=== PATIENT | male | born 1950 | race Caucasian/White ===

== ENCOUNTER 2024-11-01 20:49 | Inpatient (IN) | payer BC, MEDICARE ==
[~2024-11-01] VITALS: Ht 175.3 cm; Wt 62.2 kg
[~2024-11-01 20:49] MED LIST: MAGN420T GT; POTA25TA7 GT
[2024-11-01 21:25] LABS: BASOPHILS % (AUTO) 0.3 % (0.0-2.0); EOSINOPHILS # (AUTO) 0.1 K/uL (0.0-0.7); EOSINOPHILS % (AUTO) 0.5 % (0.0-6.0); HEMATOCRIT 38 % (39-51); HEMOGLOBIN 11.9 g/dL (13.5-17.5); LYMPHOCYTES # (AUTO) 1.1 K/uL (0.8-4.8); LYMPHOCYTES % (AUTO) 8.2 % (20.0-44.0); MEAN CORPUSCULAR HEMOGLOBIN 30 PG (26.0-33.0); MEAN CORPUSCULAR HGB CONC 32 g/dl (31.0-36.0); MEAN CORPUSCULAR VOLUME 95 fL (80-96); MONOCYTES # (AUTO) 1.3 K/uL (0.1-1.30); MONOCYTES % (AUTO) 9.3 % (2.0-12.0); NEUTROPHILS # (AUTO) 11.4 K/uL (1.8-8.9); NEUTROPHILS % (AUTO) 81.7 % (43.0-81.0); PLATELET COUNT (AUTO) 225 K/uL (150-450); RED BLOOD CELL COUNT(AUTO) 3.97 MIL/uL (4.5-6.0); RED CELL DISTRIBUTION WIDTH 20.7 % (11.5-15.0)
[2024-11-01] MEDS ORDERED: PIPERACI/TAZO 3.375GM/D5W 50ML PB IV ONE (21:32)
[2024-11-01] MEDS: PIPERACILLIN /TAZOBACTAM 3.375 G in IV D5W 50 ML IV ONE (21:36)
[2024-11-01] MEDS: IV NS 0.9% 1,000 ML IV ONE ×2 (21:36)
[2024-11-01 21:37] LABS: INR 1.13 (0.91-1.10); PARTIAL THROMBOPLASTIN TIME 25.4 SEC (24.3-34.3); PROTHROMBIN TIME 11.9 SECS (9.2-11.1)
[2024-11-01 21:39] LABS: ALANINE AMINOTRANSFERASE 17 U/L (12-78); ALBUMIN 2.1 g/dL (3.4-5.0); ALKALINE PHOSPHATASE 109 U/L (46-116); ASPARTATE AMINOTRANSFERASE 38 U/L (15-37); BILIRUBIN,DIRECT 0.3 mg/dL (0.0-0.2); BILIRUBIN,TOTAL 0.6 mg/dL (0.2-1.0); CALCIUM, SERUM 8.7 mg/dL (8.5-10.1); CARBON DIOXIDE 25 mmol/L (21-32); CHLORIDE 110 mmol/L (98-107); GLUCOSE 104 mg/dL (74-106); POTASSIUM 3.8 mmol/L (3.5-5.1); SODIUM SERUM 147 mmol/L (136-145)
[2024-11-01 21:51] LABS: LACTIC ACID 3.5 mmol/L (0.4-2.0)
[2024-11-01 21:53] LABS: UREA NITROGEN, BLOOD 174 mg/dL (7-18)
[2024-11-01 21:57] LABS: APPEARANCE,URINE CLEAR (CLEAR); BILIRUBIN,URINE NEGATIVE (NEGATIVE); BLOOD, URINE 2+ Ery/uL (NEGATIVE); COLOR,URINE YELLOW (YELLOW); KETONES,URINE NEGATIVE (NEGATIVE); LEUKOCYTE ESTERASE ,URINE TRACE (NEGATIVE); NITRITE, URINE POSITIVE (NEGATIVE); PH,URINE 5.5 (5.0-8.0); PROTEIN,URINE NEGATIVE (NEGATIVE); UGLUCOSE NEGATIVE (NEGATIVE); UROBILINOGEN,URINE 0.2 EU/dL (0.2)
[2024-11-01 21:58] LABS: ADD URINE CULTURE YES; BACTERIA,URINE Few /HPF (None Seen); HYALINE CASTS, URINE Rare /LPF (None Seen); SQUAMOUS EPITHELIAL CELL,UR Rare /HPF (None Seen)
[2024-11-01 21:59] VITALS: O2SAT 96
[2024-11-01] MEDS: ALBUTEROL FS 2.5 MG/3 ML VIAL.NEB NEB ONE (21:59)
[2024-11-01] MEDS ORDERED: ALBUTEROL FS 2.5 MG/3 ML VIAL.NEB ONE (21:59)
[2024-11-01 22:14] VITALS: O2SAT 100
[2024-11-01 23:59] LABS: ABG BASE EXCESS -5.3 mmol/L (-2.0-3.0); ABG OXYGEN SATURATION 87.1 % (94.0-98.0); ABG PCO2 22.2 mmHg (35.0-48.0); ABG PH 7.484 (7.350-7.450); ABG PO2 54.4 mmHg (83.0-108.0); COHb 0.1 % (0.5-1.5); MetHb 0.8 % (0.0-1.5); O2Hb 86.3 % (94.0-97.0); SITE, ABG RIGHT FEMORAL
[2024-11-02] VITALS (20 sets, daily range): BP systolic 92–138; BP diastolic 51–85; TEMP 97.1–98.3; O2SAT 93–100
[2024-11-02] MEDS ORDERED: ENOXAPARIN SODIUM 40 MG/0.4 ML DISP.SYRIN SQ SCH (01:30)
[2024-11-02] MEDS ORDERED: ONDANSETRON HCL/PF 4 MG/2 ML VIAL IVP PRN (01:30)
[2024-11-02] MEDS ORDERED: MAG HYDROX/AL HYDROX/SIMETH 30 ML UDC PO PRN (01:30)
[2024-11-02] MEDS ORDERED: ACETAMINOPHEN 325 MG TABLET PO PRN (01:30)
[2024-11-02] MEDS ORDERED: ENOX40DI9 SQ (01:47)
[2024-11-02] MEDS ORDERED: MAGN200T5 PO (01:47)
[2024-11-02] MEDS ORDERED: POTA1GRA MC (01:47)
[2024-11-02] MEDS ORDERED: ACET325C7 PO (01:47)
[2024-11-02] MEDS ORDERED: METO50TA16 GT (01:47)
[2024-11-02] MEDS ORDERED: CLOP75TA15 GT (01:47)
[2024-11-02] MEDS ORDERED: FAMO20TA80 GT (01:47)
[2024-11-02] MEDS ORDERED: BISA10SU61 RC (01:47)
[2024-11-02] MEDS ORDERED: NA P133E RC (01:47)
[2024-11-02] MEDS ORDERED: ACET325T53 PO (01:47)
[2024-11-02] MEDS ORDERED: SENN-261 GT (01:47)
[2024-11-02] MEDS ORDERED: DOCU50LI GT (01:47)
[2024-11-02] MEDS ORDERED: PANT40SU2 GT (01:47)
[2024-11-02] MEDS ORDERED: METO5TAB2 GT (01:47)
[2024-11-02] MEDS ORDERED: ASPI-1169 PO (01:47)
[2024-11-02] MEDS ORDERED: HYDR-4077 GT (01:47)
[2024-11-02] MEDS ORDERED: POLY17PO29 GT (01:47)
[2024-11-02] MEDS ORDERED: PIPERACI/TAZO 3.375GM/D5W 50ML PB IV ONE ×2 (02:41→04:48)
[2024-11-02] MEDS ORDERED: VANCOMYCIN 1 GM /D5W 250 ML PB IV ONE (02:41)
[2024-11-02] MEDS: IV NS 0.9% 1,000 ML IV PRN ×2 (02:46→11:33)
[2024-11-02] MEDS: VANCOMYCIN HCL 1.25 GM in IV D5W 250 ML IV ONE (03:00)
[2024-11-02] MEDS: ZOSYN IVPB 3.375 G in IV D5W 50ml IV ONE (04:45)
[2024-11-02 04:57] LABS: BASOPHILS % (AUTO) 0.2 % (0.0-2.0); EOSINOPHILS # (AUTO) 0.1 K/uL (0.0-0.7); EOSINOPHILS % (AUTO) 0.4 % (0.0-6.0); HEMATOCRIT 31 % (39-51); HEMOGLOBIN 9.8 g/dL (13.5-17.5); LYMPHOCYTES # (AUTO) 0.8 K/uL (0.8-4.8); LYMPHOCYTES % (AUTO) 6.8 % (20.0-44.0); MEAN CORPUSCULAR HEMOGLOBIN 31 PG (26.0-33.0); MEAN CORPUSCULAR HGB CONC 32 g/dl (31.0-36.0); MEAN CORPUSCULAR VOLUME 97 fL (80-96); MONOCYTES % (AUTO) 8.7 % (2.0-12.0); NEUTROPHILS # (AUTO) 9.9 K/uL (1.8-8.9); NEUTROPHILS % (AUTO) 83.9 % (43.0-81.0); PLATELET COUNT (AUTO) 167 K/uL (150-450); RED BLOOD CELL COUNT(AUTO) 3.18 MIL/uL (4.5-6.0); RED CELL DISTRIBUTION WIDTH 20.6 % (11.5-15.0); WHITE BLOOD COUNT (AUTO) 11.9 K/uL (4.3-11.0)
[2024-11-02 05:11] LABS: CALCIUM, SERUM 8.4 mg/dL (8.5-10.1); CREATININE 3.2 mg/dL (0.6-1.3); PHOSPHORUS 5.6 mg/dL (2.5-4.9); POTASSIUM 3.5 mmol/L (3.5-5.1)
[2024-11-02] MEDS ORDERED: MAG HYDROX/AL HYDROX/SIMETH 30 ML UDC GT PRN (06:22)
[2024-11-02] MEDS ORDERED: ACETAMINOPHEN 650 MG/20.3 ML UDC GT PRN (06:30)
[2024-11-02] MEDS: PANTOPRAZOLE 40 MG/PACK PACK GT ONE (06:35)
[2024-11-02] MEDS: SENNOSIDES 8.6 MG TABLET PO ONE (06:35)
[2024-11-02] MEDS: POLYETHYLENE GLYCOL 3350 17 GM POWD.PACK PO ONE (06:35)
[2024-11-02] MEDS: THERAHONEY GEL 1.5 OZ TUBE TP SCH (08:46)
[2024-11-02] MEDS: ASPIRIN 81 MG TAB.CHEW GT SCH (08:47)
[2024-11-02] MEDS: CLOPIDOGREL BISULFATE 75 MG TABLET PO SCH (08:47)
[2024-11-02] MEDS: DOCUSATE SODIUM LIQ 100 MG/10 ML UDC GT SCH (08:47)
[2024-11-02] MEDS: FAMOTIDINE (20 MG) 20 MG TABLET GT SCH (08:47)
[2024-11-02] MEDS: HEPARIN SODIUM, PORCINE 5000 UNITS/1 ML VIAL SQ SCH (08:47)
[2024-11-02] MEDS: BISACODYL SUPP (10 MG) 10 MG/SUPP.RECT SUPP.RECT RC SCH (09:12)
[2024-11-02] MEDS ORDERED: AMLO-212 GT (09:13)
[2024-11-02] MEDS ORDERED: INSU100V39 SQ (09:13)
[2024-11-02] MEDS ORDERED: MULT9LIQ6 GT (09:13)
[2024-11-02] MEDS ORDERED: NUT.237L30 GT (09:13)
[2024-11-02] MEDS ORDERED: IPRA3AMP23 IH ×2 (09:13)
[2024-11-02] MEDS ORDERED: DEXT50DI8 IV (09:13)
[2024-11-02] MEDS ORDERED: ASCO500L2 GT (09:13)
[2024-11-02] MEDS ORDERED: MAGN400O6 GT (09:13)
[2024-11-02] MEDS ORDERED: GLUC1KIT IM (09:13)
[2024-11-02] MEDS ORDERED: CLOPIDOGREL BISULFATE 75 MG TABLET GT SCH (10:19)
[2024-11-02] MEDS: GLUCERNA 1.2 1,000 ML BOTTLE GT PRN (12:06)
[2024-11-02] MEDS: PIPERACILLIN /TAZOBACTAM 2.25 G in IV D5W 50 ML IV SCH (12:06)
[2024-11-02 15:56] LABS: IRON, SERUM 29 ug/dl (50-175); TOTAL IRON BINDING CAPACITY 131 ug/dl (250-450)
[2024-11-02] MEDS: AMLODIPINE BESYLATE 5 MG TABLET GT SCH (16:30)
[2024-11-02 17:16] LABS: CREATININE, URINE 52.4 MG/DL (30.0-125.0); URINE TOTAL PROTEIN 41.1 mg/dL (0-11.9)
[2024-11-02 17:21] LABS: FERRITIN 3439 ng/mL (8-388)
[2024-11-02 18:11] LABS: CALCIUM, SERUM 8.4 mg/dL (8.5-10.1); CREATININE 2.8 mg/dL (0.6-1.3)
[2024-11-02 18:21] LABS: POTASSIUM 3.5 mmol/L (3.5-5.1)
[2024-11-02] MEDS: IV D5W 1,000 ML IV ONE (18:35)
[2024-11-02] MEDS: FREE WATER VIA TUBE FEEDING GT SCH (18:35)
[2024-11-02] MEDS: IV D5/0.45 NACL 1,000 ML IV PRN (21:52)
[2024-11-03] VITALS: BP 119/68; TEMP 97.5; O2SAT 95
[2024-11-03 05:00] VITALS: BP 114/60; TEMP 97.7; O2SAT 93
[2024-11-03 06:25] VITALS: BP 114/60; TEMP 97.7; O2SAT 93
[2024-11-03 07:20] LABS: BASOPHILS % (AUTO) 0.1 % (0.0-2.0); EOSINOPHILS # (AUTO) 0.2 K/uL (0.0-0.7); EOSINOPHILS % (AUTO) 2.5 % (0.0-6.0); HEMATOCRIT 29 % (39-51); HEMOGLOBIN 9.6 g/dL (13.5-17.5); LYMPHOCYTES # (AUTO) 1.1 K/uL (0.8-4.8); MEAN CORPUSCULAR HEMOGLOBIN 31 PG (26.0-33.0); MEAN CORPUSCULAR HGB CONC 33 g/dl (31.0-36.0); MEAN CORPUSCULAR VOLUME 95 fL (80-96); MONOCYTES # (AUTO) 0.7 K/uL (0.1-1.30); MONOCYTES % (AUTO) 6.9 % (2.0-12.0); NEUTROPHILS # (AUTO) 7.8 K/uL (1.8-8.9); NEUTROPHILS % (AUTO) 79.5 % (43.0-81.0); PLATELET COUNT (AUTO) 196 K/uL (150-450); RED BLOOD CELL COUNT(AUTO) 3.09 MIL/uL (4.5-6.0); RED CELL DISTRIBUTION WIDTH 20.3 % (11.5-15.0); WHITE BLOOD COUNT (AUTO) 9.8 K/uL (4.3-11.0)
[2024-11-03 07:49] LABS: ALBUMIN 1.6 g/dL (3.4-5.0); BILIRUBIN,TOTAL 0.4 mg/dL (0.2-1.0); CALCIUM, SERUM 8.3 mg/dL (8.5-10.1); CREATININE 2.2 mg/dL (0.6-1.3); MAGNESIUM 2.9 mg/dL (1.8-2.4); PHOSPHORUS 3.4 mg/dL (2.5-4.9); POTASSIUM 3.2 mmol/L (3.5-5.1)
[2024-11-03 08:32] VITALS: BP 122/67; TEMP 97.5; O2SAT 95
[2024-11-03] MEDS: POTASSIUM CHLORIDE 20 MEQ POWDER PACKET NG SCH (08:46)
[2024-11-03] MEDS: CLOPIDOGREL BISULFATE 75 MG TABLET GT SCH (08:47)
[2024-11-03] MEDS: IV D5W 1,000 ML IV PRN (08:56)
[2024-11-03] MEDS: VANCOMYCIN 750 MG in IV D5W 250 ML IV SCH (11:43)
[2024-11-03] MEDS: PIPERACILLIN /TAZOBACTAM 3.375 G in IV D5W 100 ML IV SCH (13:20)
[2024-11-03] MEDS ORDERED: VANCOMYCIN 750 MG in IV D5W 250 ML IV SCH (15:00)
[2024-11-03 16:29] VITALS: BP 130/70; TEMP 98.2; O2SAT 98
[2024-11-03 20:00] VITALS: BP 132/75; TEMP 98.6; O2SAT 98
[2024-11-03] MEDS: MUPIROCIN OINT 2% 22 GM TUBE NS SCH (21:01)
[2024-11-04] VITALS: BP 155/71; TEMP 97.7; O2SAT 99
[2024-11-04 04:00] VITALS: BP 112/64; TEMP 98.6; O2SAT 95
[2024-11-04 06:44] LABS: CALCIUM, SERUM 8.7 mg/dL (8.5-10.1); CREATININE 1.6 mg/dL (0.6-1.3); POTASSIUM 3.7 mmol/L (3.5-5.1)
[2024-11-04 07:06] LABS: PTH, INTACT 34 pg/mL (15-65)
[2024-11-04 08:00] VITALS: BP 144/81; TEMP 97.9; O2SAT 98
[2024-11-04] MEDS: FREE WATER VIA TUBE FEEDING GT SCH (11:08)
[2024-11-04] MEDS: VANCOMYCIN 500 MG in IV D5W 100ml IV ONE (15:17)
[2024-11-04 15:58] VITALS: BP 137/76; TEMP 98.2; O2SAT 99
[2024-11-04 20:00] VITALS: BP 148/82; TEMP 97.9; O2SAT 94
[2024-11-05] VITALS: BP 156/86; TEMP 97.5; TEMP 97.8; O2SAT 95; O2SAT 98
[2024-11-05 04:00] VITALS: BP 154/81; TEMP 98.2; O2SAT 99
[2024-11-05 05:00] VITALS: BP 159/81; TEMP 98.2; O2SAT 100
[2024-11-05 07:00] VITALS: BP 138/74; O2SAT 92
[2024-11-05 07:01] LABS: CALCIUM, SERUM 8.6 mg/dL (8.5-10.1); CREATININE 1.4 mg/dL (0.6-1.3); POTASSIUM 3.2 mmol/L (3.5-5.1)
[2024-11-05] MEDS: POTASSIUM CHLORIDE 20 MEQ TAB.PRT.SR PO SCH (08:24)
[2024-11-05] MEDS ORDERED: VANCOMYCIN HCL 1.25 GM in IV D5W 250 ML IV SCH (11:00)
[2024-11-05] MEDS: VANCOMYCIN 1 GM in IV D5W 250 ML IV SCH (11:05)
[2024-11-05 16:00] VITALS: BP 138/80; TEMP 97.7; O2SAT 94
[2024-11-05 20:00] VITALS: BP 141/79; TEMP 98.6; O2SAT 95
[2024-11-05] MEDS ORDERED: VANCOMYCIN 1 GM in IV D5W 250 ML IV SCH (23:00)
[2024-11-06 07:00] VITALS: BP 137/64; TEMP 97.9; O2SAT 96
[2024-11-06 08:22] LABS: CALCIUM, SERUM 8.6 mg/dL (8.5-10.1); CREATININE 1.4 mg/dL (0.6-1.3); POTASSIUM 3.6 mmol/L (3.5-5.1)
[2024-11-06 11:02] LABS: BASOPHILS % (AUTO) 0.3 % (0.0-2.0); EOSINOPHILS # (AUTO) 0.1 K/uL (0.0-0.7); EOSINOPHILS % (AUTO) 0.9 % (0.0-6.0); HEMATOCRIT 31 % (39-51); HEMOGLOBIN 10.3 g/dL (13.5-17.5); LYMPHOCYTES # (AUTO) 1.3 K/uL (0.8-4.8); MEAN CORPUSCULAR HEMOGLOBIN 31 PG (26.0-33.0); MEAN CORPUSCULAR HGB CONC 33 g/dl (31.0-36.0); MEAN CORPUSCULAR VOLUME 94 fL (80-96); MONOCYTES # (AUTO) 0.7 K/uL (0.1-1.30); MONOCYTES % (AUTO) 6.9 % (2.0-12.0); NEUTROPHILS % (AUTO) 78.9 % (43.0-81.0); PLATELET COUNT (AUTO) 228 K/uL (150-450); RED BLOOD CELL COUNT(AUTO) 3.34 MIL/uL (4.5-6.0); RED CELL DISTRIBUTION WIDTH 19.6 % (11.5-15.0); WHITE BLOOD COUNT (AUTO) 10.2 K/uL (4.3-11.0)
[2024-11-06 16:00] VITALS: BP 115/69; TEMP 97.7; O2SAT 98
[2024-11-06 16:36] LABS: ANISOCYTOSIS 1+; BASOPHILS % (MANUAL) 0 % (0.0-2.0); EOSINOPHILS % (MANUAL) 1 % (0-4); LYMPHOCYTES % (MANUAL) 15 % (16-48); MONOCYTES % (MANUAL) 5 % (0-11.0); NEUTROPHILS % (MANUAL) 79 (42-76); PLATELET ESTIMATE ADEQUATE
[2024-11-06 20:00] VITALS: BP 143/86; TEMP 98.2; O2SAT 95
[2024-11-07 05:07] LABS: *SPE A/G RATIO 0.5 (0.7-1.7); *SPE ALBUMIN 1.6 g/dL (2.9-4.4); *SPE ALPHA-1-GLOBULIN 0.5 g/dL (0.0-0.4); *SPE ALPHA-2-GLOBULIN 0.9 g/dL (0.4-1.0); *SPE BETA GLOBULIN 0.9 g/dL (0.7-1.3); *SPE GLOBULIN, TOTAL 3.2 g/dL (2.2-3.9); *SPE M-SPIKE Not Observed g/dL (Not Observed); *SPE PROTEIN TOTAL 4.8 g/dL (6.0-8.5); *SPEGAMMA GLOBULIN 0.8 g/dL (0.4-1.8)
[2024-11-07 06:53] LABS: CREATININE 1.3 mg/dL (0.6-1.3); POTASSIUM 4.1 mmol/L (3.5-5.1)
[2024-11-07 08:28] VITALS: BP 158/74; TEMP 98.7; O2SAT 95
[2024-11-07 10:07] LABS: *SPE A/G RATIO 0.5 (0.7-1.7); *SPE ALBUMIN 1.7 g/dL (2.9-4.4); *SPE ALPHA-1-GLOBULIN 0.4 g/dL (0.0-0.4); *SPE BETA GLOBULIN 0.9 g/dL (0.7-1.3); *SPE GLOBULIN, TOTAL 3.1 g/dL (2.2-3.9); *SPE M-SPIKE Not Observed g/dL (Not Observed); *SPE PROTEIN TOTAL 4.8 g/dL (6.0-8.5); *SPEGAMMA GLOBULIN 0.8 g/dL (0.4-1.8)
[2024-11-07] MEDS: VANCOMYCIN 1 GM in IV D5W 250ml IV SCH (12:11)
[2024-11-07 16:29] VITALS: BP 146/76; TEMP 97.8; O2SAT 100
[2024-11-07 20:00] VITALS: BP 145/74; TEMP 97.6; O2SAT 95
[2024-11-08 06:43] LABS: BASOPHILS % (AUTO) 0.3 % (0.0-2.0); EOSINOPHILS # (AUTO) 0.1 K/uL (0.0-0.7); EOSINOPHILS % (AUTO) 1.3 % (0.0-6.0); HEMATOCRIT 31 % (39-51); HEMOGLOBIN 10.5 g/dL (13.5-17.5); LYMPHOCYTES # (AUTO) 1.1 K/uL (0.8-4.8); LYMPHOCYTES % (AUTO) 14.6 % (20.0-44.0); MEAN CORPUSCULAR HEMOGLOBIN 31 PG (26.0-33.0); MEAN CORPUSCULAR HGB CONC 34 g/dl (31.0-36.0); MEAN CORPUSCULAR VOLUME 92 fL (80-96); MONOCYTES # (AUTO) 0.7 K/uL (0.1-1.30); MONOCYTES % (AUTO) 8.9 % (2.0-12.0); NEUTROPHILS # (AUTO) 5.5 K/uL (1.8-8.9); NEUTROPHILS % (AUTO) 74.9 % (43.0-81.0); PLATELET COUNT (AUTO) 248 K/uL (150-450); RED BLOOD CELL COUNT(AUTO) 3.36 MIL/uL (4.5-6.0); RED CELL DISTRIBUTION WIDTH 18.9 % (11.5-15.0); WHITE BLOOD COUNT (AUTO) 7.3 K/uL (4.3-11.0)
[2024-11-08 07:14] LABS: CALCIUM, SERUM 9.1 mg/dL (8.5-10.1); CREATININE 1.3 mg/dL (0.6-1.3); PHOSPHORUS 3.9 mg/dL (2.5-4.9); POTASSIUM 3.9 mmol/L (3.5-5.1)
[2024-11-08 08:30] VITALS: BP 122/66; TEMP 98.1; O2SAT 96
[2024-11-08 09:45] LABS: ANISOCYTOSIS 1+; EOSINOPHILS % (MANUAL) 1 % (0-4); LYMPHOCYTES % (MANUAL) 12 % (16-48); MONOCYTES % (MANUAL) 10 % (0-11.0); NEUTROPHILS % (MANUAL) 77 (42-76); PLATELET ESTIMATE ADEQUATE
[2024-11-08 16:00] VITALS: BP 143/77; TEMP 98.2; O2SAT 98
[2024-11-08 20:00] VITALS: BP 142/82; TEMP 98.8; O2SAT 97
[2024-11-09] MEDS ORDERED: GUAIFENESIN/D-METHORPHAN HB 5 ML UDC PO PRN (05:00)
[2024-11-09] MEDS: GUAIFENESIN/D-METHORPHAN HB 5 ML UDC PO PRN (05:27)
[2024-11-09 07:13] LABS: BASOPHILS % (AUTO) 0.2 % (0.0-2.0); CALCIUM, SERUM 9.2 mg/dL (8.5-10.1); CREATININE 1.2 mg/dL (0.6-1.3); EOSINOPHILS # (AUTO) 0.1 K/uL (0.0-0.7); EOSINOPHILS % (AUTO) 0.9 % (0.0-6.0); HEMATOCRIT 31 % (39-51); HEMOGLOBIN 10.5 g/dL (13.5-17.5); LYMPHOCYTES # (AUTO) 1.1 K/uL (0.8-4.8); LYMPHOCYTES % (AUTO) 12.9 % (20.0-44.0); MEAN CORPUSCULAR HEMOGLOBIN 31 PG (26.0-33.0); MEAN CORPUSCULAR HGB CONC 34 g/dl (31.0-36.0); MEAN CORPUSCULAR VOLUME 93 fL (80-96); MONOCYTES # (AUTO) 0.9 K/uL (0.1-1.30); MONOCYTES % (AUTO) 10.3 % (2.0-12.0); NEUTROPHILS # (AUTO) 6.4 K/uL (1.8-8.9); NEUTROPHILS % (AUTO) 75.7 % (43.0-81.0); PLATELET COUNT (AUTO) 258 K/uL (150-450); POTASSIUM 3.8 mmol/L (3.5-5.1); RED BLOOD CELL COUNT(AUTO) 3.37 MIL/uL (4.5-6.0); RED CELL DISTRIBUTION WIDTH 19.2 % (11.5-15.0); WHITE BLOOD COUNT (AUTO) 8.4 K/uL (4.3-11.0)
[2024-11-09] MEDS: FREE WATER VIA TUBE FEEDING GT SCH (10:02)
[2024-11-09] MEDS ORDERED: DAPT350V IV (10:27)
[2024-11-09 20:00] VITALS: BP 101/60; TEMP 98.6; O2SAT 98
[2024-11-09] MEDS ORDERED: VANCOMYCIN 1 GM /D5W 250 ML PB IV ONE (22:18)
[2024-11-10 08:40] VITALS: BP 116/67; TEMP 98.6; O2SAT 97
[2024-11-10 16:03] VITALS: BP 116/66; TEMP 98.4; O2SAT 95
[2024-11-10 17:46] VITALS: BP 116/66
== END 2024-11-10 23:32 | DRG 871 ==
LOC: ER 21:01 → ICU 11-02 01:03 → TELE 11-02 18:49 → MED 11-05 14:14
PROVIDERS: ADMIT Nurse Practitioner Acute Care; ATTEND Nurse Practitioner Acute Care
PROC: 05HC33Z Insertion of Infusion Device into Left Basilic Vein, Percutaneous Approach (ICD-10-PCS; principal; 2024-11-10)
DX: A41.9 Sepsis, unspecified organism (principal); G93.41 Metabolic encephalopathy; J15.9 Unspecified bacterial pneumonia; J96.01 Acute respiratory failure with hypoxia; N17.0 Acute kidney failure with tubular necrosis; R53.2 Functional quadriplegia; N39.0 Urinary tract infection, site not specified; I69.354 Hemiplegia and hemiparesis following cerebral infarction affecting left non-dominant side; E87.0 Hyperosmolality and hypernatremia; E87.20 Acidosis, unspecified; E44.0 Moderate protein-calorie malnutrition; E87.1 Hypo-osmolality and hyponatremia; R65.20 Severe sepsis without septic shock; B96.20 Unspecified Escherichia coli [E. coli] as the cause of diseases classified elsewhere; Z22.322 Carrier or suspected carrier of Methicillin resistant Staphylococcus aureus; I69.320 Aphasia following cerebral infarction; K21.9 Gastro-esophageal reflux disease without esophagitis; Z93.1 Gastrostomy status; R13.10 Dysphagia, unspecified; D64.9 Anemia, unspecified; E87.6 Hypokalemia; E88.09 Other disorders of plasma-protein metabolism, not elsewhere classified; Z68.20 Body mass index [BMI] 20.0-20.9, adult; E86.0 Dehydration; I70.0 Atherosclerosis of aorta; M89.8X9 Other specified disorders of bone, unspecified site; I10 Essential (primary) hypertension; Z79.899 Other long term (current) drug therapy; Z79.02 Long term (current) use of antithrombotics/antiplatelets; Z79.82 Long term (current) use of aspirin; L89.156 Pressure-induced deep tissue damage of sacral region; B95.61 Methicillin susceptible Staphylococcus aureus infection as the cause of diseases classified elsewhere; Z78.1 Physical restraint status
CPT/HCPCS: 36415; 36600; 71045-TC; 76770-TC; 80048-TC; 80053-TC; 80076-TC; 80202-TC; 81001; 82550-TC; 82570-TC; 82728-TC; 83540-TC; 83605-TC; 83735-TC; 83970; 84100-TC; 84155; 84165; 84300-TC; 84439-TC; 84443-TC; 84484-TC; 85025-TC; 85730-TC; 87040-TC; 87081-TC; 87086-TC; 93307-TC; 94799-TC; A4223; A6253; A6403; G0378; J1644; J2543; J3370; J3371; J3490; J7030; J7040; J7050; J7060; J7070